=== PATIENT | female | born 1960 | race Caucasian/White ===

== ENCOUNTER 2021-07-26 13:56 | Emergency (ER) | payer BC ==
[2021-07-26] MEDS ORDERED: Ondansetron 4 MG Tab.DIS PO ONE (14:12)
[2021-07-26] MEDS ORDERED: Sodium Chloride 0.9% 10 ML Syringe FLUSH PRN (14:15)
[2021-07-26] MEDS ORDERED: HYDROmorphone 2 MG/ML SDV IVPUSH ONE (14:16)
[2021-07-26 14:24] VITALS: PULSE 79
[2021-07-26 14:49] LABS: ESTIMATED GFR 74 mL/min (>60)
[2021-07-26 20:51] VITALS: BP 127/73
== END 2021-07-26 16:15 | disposition home or self-care (01) ==
LOC: FB.ED 13:56
DX: R10.10 Upper abdominal pain, unspecified (principal); R10.816 Epigastric abdominal tenderness; I25.2 Old myocardial infarction; Z88.8 Allergy status to other drugs, medicaments and biological substances; Z79.82 Long term (current) use of aspirin
CPT/HCPCS: 36415; 80053; 83690; 85027; 86140; 96374; 99282; 99284-25; J1170; Q0162